=== PATIENT | male | born 1945 | race Caucasian/White ===

== ENCOUNTER → 2017-10-18 | Outpatient (CLI) | payer MEDICARE, OTHER ==
[~2017-10-18] MED LIST: BYSTOLIC10 MG PO; ELIQUIS PO; FUROSEMIDE40 MG PO; HYDROCHLOROTHIA25 MG PO; IOPAMIDOL 370 MG/ML 200 ML INFUS..BTL INJ ONE; SODIUM CHLORIDE 0.9% 100 ML 100 ML ONE
[2017-10-18 10:46] LABS: BLOOD UREA NITROGEN 6 mg/dL (7-26); BUN/CREATININE RATIO 8 (6-25); CREATININE, SERUM 0.71 mg/dL (0.72-1.25); EST GLOMERULAR FILTRATION RATE > 60 ML/MIN (60-)
--- NOTE | 2017-10-19 08:03 | Diagnostic Imaging Report ---
Exam: CTA lower extremity, with contrast. History: Peripheral vascular disease. Comparison: None available. Technique: Multidetector [address] scanning of the abdomen, pelvis and bilateral lower extremities was performed from the level of the lung bases to the feet after intravenous administration of 100 cc of Isovue-370. Scanning during precontrast, arterial, and venous phases was performed. Coronal and sagittal multiplanar, MIP and 3-D volume-rendering reformations were obtained. DLP: 832.26 mGy-cm Discussion: Abdominal aorta: Mild atherosclerotic calcification and plaque. No stenosis, aneurysm or evidence of dissection. Right hepatic artery originates from the SMA. No significant visceral vessel stenosis. Pelvis vessels: Bilateral common, external and internal iliac arteries are patent with evidence of atherosclerotic calcification and plaque. No stenosis. Right lower extremity: Right common common femoral and profunda are patent. Proximal superficial femoral artery is patent with the middle one third of the superficial femoral artery occluded. There is reconstitution of the SFA above the knee. Length of SFA occlusion estimated at 10 cm or greater. The popliteal artery is patent with atherosclerotic changes. There is a patent trifurcation with occlusion of the proximal anterior tibial artery. Posterior tibial and peroneal artery extend to the foot. Left lower extremity: Right common femoral, profundus femoral, superficial femoral and popliteal arteries are patent. Diffuse atherosclerotic calcification without evidence of focal stenosis. There is a patent trifurcation with the peroneal and posterior tibial arteries extending to the foot. The anterior tibial artery is occluded past its takeoff. Other: The liver, spleen, pancreas, adrenal glands and bilateral kidneys have a normal appearance for arterial phase enhancement. There is no evidence of free fluid or adenopathy. Bladder and pelvic organs appear unremarkable with the exception of enlargement of the prostate and calcification. There are degenerative changes of the spine. IMPRESSION: 1. Long segment occlusion of the middle one third of the right superficial femoral artery. 2. Occlusion of both anterior tibial arteries with posterior tibial and peroneal artery runoff to the feet. 3. Enlarged prostate gland. Signed by: Dr. Naveed Patterson DO on 10/19/2017 8:00 AM
== END ==
LOC: CT 09:57
PROVIDERS: ATTEND Internal Medicine
DX: I70.203 Unspecified atherosclerosis of native arteries of extremities, bilateral legs (principal); I73.9 Peripheral vascular disease, unspecified
CPT/HCPCS: 36415; 75635; 82565; 84520; Q9967

== ENCOUNTER 2018-02-08 11:59 | Observation (INO) | payer MEDICARE, OTHER ==
[~2018-02-08] VITALS: Ht 170.2 cm; Wt 86.2 kg
[~2018-02-08 11:59] MED LIST changes: -IOPAMIDOL 370 MG/ML 200 ML INFUS..BTL INJ ONE; -SODIUM CHLORIDE 0.9% 100 ML 100 ML ONE
--- OUTSIDE RECORDS SUMMARY | 2018-02-08 12:01 | XMS REPORT ---
Author [facility] Address Unknown Phone Unavailable Care Team Providers Care Laboratory Helper Name Role Phone Alanis GENTILE Unavailable Unavailable Payers Payer Name Policy Type Policy Number Effective Date Expiration Date Problems This patient has no known problems. Allergies, Adverse Reactions, Alerts Allergy Name Allergy Type Status Severity Reaction(s) Onset Date Inactive Date Treating Clinician Comments No Known Contrast Allergies DA Active U 2005-10-06 00:00:00 No Known Drug Allergies DA Active U 2005-10-06 00:00:00 No Known Food Allergies DA Active U 2005-10-06 00:00:00 No Known Other Allergies DA Active U 2005-10-06 00:00:00 No Known Drug Intolerances DA Active U 2005-10-05 00:00:00 Medications This patient has no known medications. Results Test Description Test Time Test Comments Text Results Atomic Results Result Comments CTA ABD/PEL/RUN OFF 2017-10-19 07:32:00 [place] [address] Patient Name: MARY MONTIEL MR #: [id number] : 1945 Age/Sex: 72/M Req #: [id number] Adm Physician: Ordered by: CHANCE GENTILE MD Report #: [id number] [facility]: [facility] Room/Bed: Procedure: [id number] CT/CTA ABD/PEL/RUN OFF Exam Date: 10/18/17 Exam Time: 1100 REPORT STATUS: Signed Exam: CTA lower extremity, with contrast. History: Peripheral vascular disease. Comparison: None available. Technique: Multidetector [address] scanning of the abdomen, pelvis and bilateral lower extremities was performed from the level of the lung bases to the feet after intravenous administration of 100 cc of Isovue-370. Scanning during precontrast, arterial, and venous phases was performed. Coronal and sagittal multiplanar, MIP and 3-D volume-rendering reformations were obtained. DLP: 832.26 mGy- cm Discussion: Abdominal aorta: Mild atherosclerotic calcification and plaque. No stenosis, aneurysm or evidence of dissection. Right hepatic artery originates from the SMA. No significant visceral vessel stenosis. Pelvis vessels: Bilateral common, external and internal iliac art eries are patent with evidence of atherosclerotic calcification and plaque. No stenosis. Right lower extremity: Right common common femoral and profunda are patent. Proximal superficial femoral artery is patent with the middle one third of the superficial femoral artery occluded. There is reconstitution of the SFA above the knee. Length of SFA occlusion estimated at 10 cm or greater. The popliteal artery is patent with atherosclerotic changes. There is a patent trifurcation with occlusion of the proximal anterior tibial artery. Posterior tibial and peroneal artery extend to the foot. Left lower extremity: Right common femoral, profundus femoral, superficial femoral and popliteal arteries are patent. Diffuse atherosclerotic calcification without evidence of focal stenosis. There is a patent trifurcation with the peroneal and posterior tibial arteries extending to the foot. The anterior tibial artery is occluded past its takeoff. Other: The liver, spleen, pancreas, adrenal glands and bilateral kidneys have a normal appearance for arterial phase enhancement. There is no evidence of free fluid or adenopathy. Bladder and pelvic organs appear unremarkable with the exception of enlargement of the prostate and calcification. There are degenerative changes of the spine. IMPRESSION: 1. Long segment occlusion of the middle one third of the right superficial femoral artery. 2. Occlusion of both anterior tibial arteries with posterior tibial and peroneal artery runoff to the feet. 3. Enlarged prostate gland. Signed by: Dr. Baldev Patterson DO on 10/19/2017 8:00 AM Dictated By: BALDEV PATTERSON DO 9 Transcribed By: ARTHUR on 10/19/17799 COPY TO: CHANCE GENTILE MD
[2018-02-08] MEDS ORDERED: SODIUM CHLORIDE 0.9% 1000ML 1,000 ML ONE ×2 (12:02→14:14)
[2018-02-08] MEDS ORDERED: ASPIRIN 325 MG TAB ONE (12:02)
[2018-02-08] MEDS ORDERED: LISINOPRIL10 MG PO (12:49)
[2018-02-08] MEDS ORDERED: SUCRALFATE1 GM PO (12:49)
[2018-02-08] MEDS ORDERED: PANTOPRAZOLE SO40 MG PO (12:49)
[2018-02-08] MEDS ORDERED: CILOSTAZOL100 MG PO (12:49)
[2018-02-08] MEDS ORDERED: DOXAZOSIN MESYLA4 MG PO (12:49)
[2018-02-08 12:50] VITALS: BP 166/101
[2018-02-08 13:10] LABS: BASOPHILS % 0.6 % (0.0-1.0); EOSINOPHILS # (AUTO) 0.1 (0.0-0.4); EOSINOPHILS % 1.5 % (0.0-6.0); HEMATOCRIT 34.9 % (38.2-49.6); HEMOGLOBIN 12.2 g/dL (14.0-18.0); LYMPHOCYTES # (AUTO) 1.1 (1.0-3.2); LYMPHOCYTES % 20.4 % (18.0-39.1); MEAN CORPUSCULAR VOLUME 102.9 fL (81-99); MONOCYTES # (AUTO) 0.7 (0.2-0.8); NEUTROPHILS # (AUTO) 3.5 (2.1-6.9); NEUTROPHILS % 64.1 % (38.7-80.0); PLATELET COUNT 221 x10e3/uL (140-360); RED BLOOD COUNT 3.39 x10e6/uL (4.3-5.7); RED CELL DISTRIBUTION WIDTH 14.2 % (11.7-14.4)
[2018-02-08] MEDS ORDERED: MIDAZOLAM HCL 2 MG/2 ML VIAL ONE (13:18)
[2018-02-08] MEDS ORDERED: LIDOCAINE HCL 2% LOCAL 20 ML VIAL ONE (13:19)
[2018-02-08] MEDS ORDERED: IOPAMIDOL 370 MG/ML 200 ML INFUS..BTL INJ ONE (13:19)
[2018-02-08] MEDS ORDERED: HEPARIN SOD/SOD CHLORIDE 2,000 ML ONE (13:19)
[2018-02-08] MEDS ORDERED: FENTANYL CITRATE/PF 100MCG/2 ML INJ ONE (13:20)
[2018-02-08 13:24] LABS: INR 1.06; PROTHROMBIN TIME 14.8 seconds (11.9-14.5)
[2018-02-08 13:38] LABS: ALANINE AMINOTRANSFERASE 7 IU/L (0-55); ALBUMIN 3.8 g/dL (3.5-5.0); ALBUMIN/GLOBULIN RATIO 1.3 (0.8-2.0); ALKALINE PHOSPHATASE 56 IU/L (40-150); ANION GAP 14.5 mmol/L (8-16); BLOOD UREA NITROGEN 7 mg/dL (7-26); BUN/CREATININE RATIO 10 (6-25); CALCIUM 8.6 mg/dL (8.4-10.2); CARBON DIOXIDE 24 mmol/L (22-29); CHLORIDE 95 mmol/L (98-107); CHOL/HDL RATIO 3.7 (3.9-4.7); CHOLESTEROL 188 MD/DL (0-199); CREATININE, SERUM 0.71 mg/dL (0.72-1.25); EST GLOMERULAR FILTRATION RATE > 60 ML/MIN (60-); GLUCOSE 101 mg/dL (74-118); HDL CHOLESTEROL 51 MG/DL (40-60); LDL CHOLESTEROL 124 MG/DL (60-130); POTASSIUM 3.5 mmol/L (3.5-5.1); SODIUM 130 mmol/L (136-145); TRIGLYCERIDES 64 MG/DL (0-149)
[2018-02-08] MEDS ORDERED: NITROGLYCERIN/D5W 200 MCG/ML 250 ML ONE (14:14)
[2018-02-08] MEDS ORDERED: HEPARIN SOD (PORCINE) 1000 UNIT/ML 30ML ONE (14:14)
[2018-02-08] MEDS ORDERED: VERAPAMIL HCL 2.5 MG/ML 2 ML VIAL ONE (14:14)
[2018-02-08] MEDS ORDERED: IOPAMIDOL 300MG/ML 100 ML INFUS..BTL IV ONE (15:13)
[2018-02-08] MEDS ORDERED: CLOPIDOGREL BISULFATE 75 MG TAB ONE ×2 (16:22)
[2018-02-08 18:09] VITALS: BP 166/101
[2018-02-08 20:00] VITALS: BP 162/86
[2018-02-09] MEDS ORDERED: CLOPIDOGREL BISULFATE 75 MG TAB PO SCH (09:00)
[2018-02-09] MEDS ORDERED: NEBIVOLOL 10 MG TAB PO SCH (09:00)
[2018-02-09] MEDS ORDERED: LISINOPRIL 10 MG TAB PO SCH (09:00)
[2018-02-09] MEDS ORDERED: ASPIRIN 81 MG CHEW TAB PO SCH (09:00)
[2018-02-09] MEDS ORDERED: CILOSTAZOL 100 MG TAB PO SCH (09:00)
[2018-02-09] MEDS ORDERED: HYDROCHLOROTHIAZIDE 25 MG TAB PO SCH (09:00)
[2018-02-09] MEDS ORDERED: FUROSEMIDE 40 MG TAB PO SCH (09:00)
--- NOTE | 2018-02-09 15:16 | Operative Report ---
DATE OF PROCEDURE: PROCEDURE: Peripheral angiography and intervention. PROCEDURE INDICATIONS: Intermittent claudication, life-limiting affecting daily routine with abnormal Doppler ultrasound suggesting SFA chronic occlusion and multilevel disease. PROCEDURES PERFORMED 1. Abdominal aortogram. 2. Selective lower extremity angiography, bilateral. 3. Right superficial femoral artery drug-eluting balloon angioplasty using a 6 x 150 Lutonix drug-eluting balloon. 4. Right percutaneous coronary intervention atherectomy at 60,000 rpm. 5. Right percutaneous transluminal angioplasty. 6. Left common femoral artery 6-Prydeinig Angio-Seal closure. 7. Third-order catheter placement, left common femoral artery to right common femoral artery for selective lower extremity angiography. 8. Additional third-order catheter placement to left common femoral artery to right popliteal artery for selective angiography of below the knee vessels. 9. Additional third-order catheter placement in the left femoral artery to right posterior tibial artery used to better visualize the retrograde filling of the dorsalis pedis and anterior tibial artery for outflow assessment. ESTIMATED BLOOD LOSS: Less than 15 mL. PROCEDURE COMPLICATIONS: None. PROCEDURE SUMMARY: After consent was obtained, the patient was prepped and draped in a sterile fashion. The left femoral site was locally infiltrated with 2% lidocaine. With the micropuncture kit, a short 6-Prydeinig sheath was placed. An Omniflush catheter was positioned in the abdominal aorta for video subtraction angiography of the abdominal aorta visualizing the renal arteries and looking for irregularities across the descending abdominal aorta and [place] vessels. Overall, there is a 30% stenosis and moderate calcification throughout the vessels bilaterally. Attention then directed to the right lower extremity vessels, which were evaluated with selective angiography with a sheath positioned to the right common femoral artery confirming a prior occlusion of the right SFA in the midsegment. Heavy calcification was noted. The bilateral common femoral arteries had less than 30% stenosis. The bilateral profundus area had 70% stenosis. The right SFA had a 100% chronic total occlusion, and a portion of the SFA has positive 50, mid 60, and distal 60% tandem lesions. Right popliteal artery has less than 30% stenosis. The left popliteal artery had a focal area of distal 70% stenosis. Both anterior tibial arteries are occluded 100% throughout. The right peroneal artery has a 60% and then 70% mid-stenosis. The left posterior tibial artery has 90% distal stenosis. The right CP trunk has less than 30% stenosis. The left peroneal artery has a 90% stenosis. The left posterior tibial artery has 90% stenosis in tandem with another area of 90% stenosis. Again, the left posterior tibial is 100% stenosed. Post intervention, which was performed as will be described below, the right SFA had a residual less than 10% stenosis. No flow-limiting dissections (an area of non-flow limiting dissection was noted post intervention). PARI-III flow and no perforations. The right posterior tibial artery had at the end of the procedure less than 10% residual stenosis, re-establishing linear flow down to the foot with less than 10% stenosis, PARI-III flow, no perforations, and no flow-limiting dissections. INTERVENTION: The right SFA was crossed with Advantage wire J-tipped along with an 0.35 microcatheter. Distal crossing was confirmed with the catheter in intraluminal position with additional angiography. Viper Wire was positioned at the dorsalis pedis artery, and CSI atherectomy of the right posterior tibial artery was then performed following by FUR FINISHER with a 2.5 x 220 ultra balloon for over 2 minutes. Additional FUR FINISHER of distal segment right posterior tibial was later performed, 2.5 x 100 and then a 2.5 x 40 balloon for areas of residual stenosis, and then flow-limiting dissection that was treated appropriately with this balloon with no evidence of flow-limiting dissection at the end of the procedure, and re-establishment of flow and PARI-III flow throughout the right posterior tibial artery. The right SFA was addressed with pre-dilatation using a 5 x 150 ultra balloon to 12 atmospheres for 2 minutes followed by Lutonix 6 x 150 drug-eluting balloon to the right SFA. Final angiography revealed excellent results as described above. At the conclusion, right SFA CTR revascularization using drug-eluting balloon and right posterior tibial artery CSI atherectomy and FUR FINISHER with excellent final angiographic results. Of note, the anterior tibial has a long segment of chronic occlusion in the right, and distal the right dorsalis pedis artery fills well from patent right plantar arch. There is limited segment of distal anterior tibial patency, which is suboptimal for pedal revascularization of this vessel. RECOMMENDATIONS: Aspirin and Plavix. Bedrest and IV fluids. Consider staged intervention through the left lower extremity at a later date. Job#: [id number] RI
== END 2018-02-08 22:25 | disposition home or self-care (01) ==
LOC: CATH LAB 11:59 → CATH LAB V 16:54 → IMCU 17:50
PROVIDERS: ADMIT Internal Medicine Cardiovascular Disease; ATTEND Internal Medicine Cardiovascular Disease
DX: I70.211 Atherosclerosis of native arteries of extremities with intermittent claudication, right leg (principal); I10 Essential (primary) hypertension; E78.5 Hyperlipidemia, unspecified; E66.01 Morbid (severe) obesity due to excess calories; I48.0 Paroxysmal atrial fibrillation; R60.0 Localized edema; Z82.49 Family history of ischemic heart disease and other diseases of the circulatory system
CPT/HCPCS: 36415; 37224; 37229; 75625; 75716; 80053; 80061; 84443; 85025; 85610; 93005; C1724; C1725 ×4; C1769 ×2; C1887; C2623; G0378; J1644; J2001; J2250; J7030; Q9967 ×2; 36247; 37186

== ENCOUNTER → 2018-06-13 | Outpatient (CLI) | payer MEDICARE, OTHER ==
[~2018-06-13] MED LIST changes: +CILOSTAZOL100 MG PO; +DOXAZOSIN MESYLA4 MG PO; +LISINOPRIL10 MG PO; +PANTOPRAZOLE SO40 MG PO; +SUCRALFATE1 GM PO
--- NOTE | 2018-06-13 16:31 | Diagnostic Imaging Report ---
Frontal and lateral views of the chest. HISTORY: Simple chronic bronchitis COMPARISON: None available. DISCUSSION: Lungs: Increased peribronchial interstitial markings. No evidence of a consolidative pneumonia or pulmonary alveolar edema. Pleura: No pleural effusion or pneumothorax. Heart and mediastinum: The cardiomediastinal silhouette appears unremarkable. Atherosclerotic vascular calcifications at the aortic arch. Bones and soft tissues: Appear unremarkable. IMPRESSION: 1. Findings compatible with a nonspecific bronchitis. 2. No consolidative pneumonia. Signed by: Dr. Alexis Moore D.O., M.M.M. on 06/13/2018 4:28 PM
== END ==
LOC: RAD 15:52
PROVIDERS: ATTEND Internal Medicine
DX: J41.0 Simple chronic bronchitis (principal)
CPT/HCPCS: 71046

== ENCOUNTER 2018-07-10 15:03 | Emergency (ER) | payer OTHER ==
[~2018-07-10] VITALS: Ht 170.2 cm; Wt 86.2 kg
--- NOTE | 2018-07-10 16:44 | Diagnostic Imaging Report ---
History:Left hand numbness Comparison studies: None Technique: Axial images were obtained from the skull base to the vertex. Coronal and sagittal images reconstructed from the axial data. Dose modulation, iterative reconstruction, and/or weight based adjustment of the mA/kV was utilized to reduce the radiation dose to as low as reasonably achievable. Intravenous contrast: None Findings: Scalp/skull: No abnormalities. Extra-axial spaces: No masses. No fluid collections. Brain sulci: Mildly prominent. Ventricles: Mild compensatory dilatation. No hydrocephalus. Parenchyma: Subtle hypodensities in the supratentorial white matter are small vessel ischemic changes. No masses, hemorrhage, acute or chronic cortical vascular insults. Sellar/suprasellar region: No abnormalities. Craniocervical junction: Patent foramen magnum. No Chiari one malformation. Incidental findings: Atherosclerotic calcifications in the carotid siphons and vertebral arteries. Scattered dermal calcifications at the vertex. Impression: No acute intracranial abnormalities. Chronic findings: 1. Mild generalized volume loss. 2. Mild supratentorial white matter small vessel ischemic changes. Signed by: Dr. Stuart Kaur M.D. on 07/10/2018 4:41 PM
== END 2018-07-10 17:45 | disposition home or self-care (01) ==
LOC: ER 15:03
DX: G56.32 Lesion of radial nerve, left upper limb (principal); I11.0 Hypertensive heart disease with heart failure; I50.9 Heart failure, unspecified; E11.9 Type 2 diabetes mellitus without complications; I48.91 Unspecified atrial fibrillation; E78.5 Hyperlipidemia, unspecified; N40.0 Benign prostatic hyperplasia without lower urinary tract symptoms; F17.200 Nicotine dependence, unspecified, uncomplicated; Z79.01 Long term (current) use of anticoagulants
CPT/HCPCS: 70450; 99283

== ENCOUNTER 2018-08-12 16:39 | Emergency (ER) | payer OTHER ==
[~2018-08-12] VITALS: Ht 170.2 cm; Wt 86.2 kg
== END 2018-08-12 17:20 | disposition home or self-care (01) ==
LOC: ER 16:39
DX: H92.02 Otalgia, left ear (principal); X58.XXXA Exposure to other specified factors, initial encounter; Y92.008 Other place in unspecified non-institutional (private) residence as the place of occurrence of the external cause; I10 Essential (primary) hypertension; E11.9 Type 2 diabetes mellitus without complications; I50.9 Heart failure, unspecified; I48.91 Unspecified atrial fibrillation; Z86.73 Personal history of transient ischemic attack (TIA), and cerebral infarction without residual deficits
CPT/HCPCS: 99282

== ENCOUNTER 2018-08-13 13:00 | Outpatient (RCR) | payer MEDICARE, OTHER | END 2018-08-24 | LOC: OT 13:00 | PROVIDERS: ATTEND Psychiatry & Neurology Clinical Neurophysiology | DX: G56.32 Lesion of radial nerve, left upper limb (principal) ==

== ENCOUNTER 2021-05-17 09:20 | Outpatient (RCR) | payer MEDICARE, OTHER | END 2021-05-24 | LOC: WCC 09:20 | PROVIDERS: ATTEND Internal Medicine Infectious Disease | DX: I87.332 Chronic venous hypertension (idiopathic) with ulcer and inflammation of left lower extremity (principal); L97.821 Non-pressure chronic ulcer of other part of left lower leg limited to breakdown of skin; I73.89 Other specified peripheral vascular diseases; I87.2 Venous insufficiency (chronic) (peripheral); R60.0 Localized edema; G62.9 Polyneuropathy, unspecified; I11.0 Hypertensive heart disease with heart failure; G90.09 Other idiopathic peripheral autonomic neuropathy; I48.20 Chronic atrial fibrillation, unspecified; I50.9 Heart failure, unspecified; J40 Bronchitis, not specified as acute or chronic; I63.9 Cerebral infarction, unspecified; K75.81 Nonalcoholic steatohepatitis (NASH); G47.33 Obstructive sleep apnea (adult) (pediatric); E29.1 Testicular hypofunction; K21.9 Gastro-esophageal reflux disease without esophagitis; E53.8 Deficiency of other specified B group vitamins; E55.9 Vitamin D deficiency, unspecified; F32.9 Major depressive disorder, single episode, unspecified; F41.9 Anxiety disorder, unspecified; G47.00 Insomnia, unspecified; M19.90 Unspecified osteoarthritis, unspecified site; N40.0 Benign prostatic hyperplasia without lower urinary tract symptoms; Z72.0 Tobacco use ==

== ENCOUNTER 2021-06-02 11:12 | Emergency (ER) | payer MEDICARE, OTHER ==
[~2021-06-02] VITALS: Ht 170.2 cm; Wt 86.2 kg
== END 2021-06-02 11:54 | disposition home or self-care (01) ==
LOC: ER 11:32
DX: R14.0 Abdominal distension (gaseous) (principal); I10 Essential (primary) hypertension; E11.9 Type 2 diabetes mellitus without complications; I50.9 Heart failure, unspecified; E78.5 Hyperlipidemia, unspecified; I48.91 Unspecified atrial fibrillation; Z86.73 Personal history of transient ischemic attack (TIA), and cerebral infarction without residual deficits
CPT/HCPCS: 99282

== ENCOUNTER 2021-08-25 11:29 | Outpatient (RCR) | payer MEDICARE ==
[2021-08-25] MEDS ORDERED: MINERAL OIL/PETROLAT/GLYCERI 6OZ BTL ONE (13:26)
== END 2021-09-23 ==
LOC: WCC 11:29
PROVIDERS: ATTEND Internal Medicine Infectious Disease
DX: I87.332 Chronic venous hypertension (idiopathic) with ulcer and inflammation of left lower extremity (principal); L97.821 Non-pressure chronic ulcer of other part of left lower leg limited to breakdown of skin; L97.811 Non-pressure chronic ulcer of other part of right lower leg limited to breakdown of skin; I87.331 Chronic venous hypertension (idiopathic) with ulcer and inflammation of right lower extremity; I87.2 Venous insufficiency (chronic) (peripheral); R60.0 Localized edema; E29.1 Testicular hypofunction; E53.8 Deficiency of other specified B group vitamins; E55.9 Vitamin D deficiency, unspecified; F32.9 Major depressive disorder, single episode, unspecified; F41.9 Anxiety disorder, unspecified; G47.00 Insomnia, unspecified; G47.33 Obstructive sleep apnea (adult) (pediatric); G62.9 Polyneuropathy, unspecified; G90.09 Other idiopathic peripheral autonomic neuropathy; I11.0 Hypertensive heart disease with heart failure; I48.20 Chronic atrial fibrillation, unspecified; I50.9 Heart failure, unspecified; I63.9 Cerebral infarction, unspecified; I73.89 Other specified peripheral vascular diseases; J40 Bronchitis, not specified as acute or chronic; K21.9 Gastro-esophageal reflux disease without esophagitis; K75.81 Nonalcoholic steatohepatitis (NASH); M19.90 Unspecified osteoarthritis, unspecified site; N40.0 Benign prostatic hyperplasia without lower urinary tract symptoms; Z72.0 Tobacco use

== ENCOUNTER 2021-10-04 14:59 | Observation (INO) | payer MEDICARE ==
[~2021-10-04] VITALS: Ht 167.6 cm; Wt 90.7 kg
[2021-10-04 16:34] LABS: BASOPHILS # (AUTO) 0.1 (0.0-0.1); BASOPHILS % 2.5 % (0.0-1.0); EOSINOPHILS # (AUTO) 0.1 (0.0-0.4); EOSINOPHILS % 2.5 % (0.0-6.0); HEMATOCRIT 27.8 % (38.2-49.6); HEMOGLOBIN 9.5 g/dL (14.0-18.0); LYMPHOCYTES # (AUTO) 0.8 (1.0-3.2); LYMPHOCYTES % 19.7 % (18.0-39.1); MEAN CORPUSCULAR HEMOGLOBIN 33.3 pg (28-32); MEAN CORPUSCULAR HGB CONC 34.2 g/dL (31-35); MEAN CORPUSCULAR VOLUME 97.5 fL (81-99); MONOCYTES # (AUTO) 0.6 (0.2-0.8); MONOCYTES % 15.8 % (4.4-11.3); NEUTROPHILS # (AUTO) 2.4 (2.1-6.9); NEUTROPHILS % 59.3 % (38.7-80.0); PLATELET COUNT 230 x10e3/uL (140-360); RED BLOOD COUNT 2.85 x10e6/uL (4.3-5.7); RED CELL DISTRIBUTION WIDTH 16.5 % (11.7-14.4)
[2021-10-04 16:45] LABS: INR 1.71; PROTHROMBIN TIME 21.4 seconds (11.9-14.5)
[2021-10-04 16:46] LABS: PARTIAL THROMBOPLASTIN TIME 45.8 seconds (23.8-35.5)
[2021-10-04 16:50] LABS: ALBUMIN 2.3 g/dL (3.5-5.0); ALBUMIN/GLOBULIN RATIO 0.5 (0.8-2.0); ALKALINE PHOSPHATASE 71 IU/L (40-150); ANION GAP 12.2 mmol/L (8-16); BLOOD UREA NITROGEN 8 mg/dL (7-26); BUN/CREATININE RATIO 13 (6-25); CALCIUM 7.5 mg/dL (8.4-10.2); CARBON DIOXIDE 27 mmol/L (22-29); CHLORIDE 94 mmol/L (98-107); CREATINE KINASE 24 IU/L (30-200); CREATININE, SERUM 0.62 mg/dL (0.72-1.25); GLUCOSE 91 mg/dL (74-118); POTASSIUM 4.2 mmol/L (3.5-5.1); SODIUM 129 mmol/L (136-145)
[2021-10-04 16:58] LABS: ALANINE AMINOTRANSFERASE < 6 IU/L (0-55)
[2021-10-04] MEDS ORDERED: IOPAMIDOL 370 MG/ML 100 ML INFUS..BTL INJ ONE (19:45)
[2021-10-04] MEDS ORDERED: ONDANSETRON HCL INJ 2MG/ML 2ML 2 MG/ML VIAL IV PRN (20:00)
[2021-10-04] MEDS ORDERED: SODIUM CHLORIDE FLUSH 10 ML SYR INJ PRN (20:00)
[2021-10-04 21:00] VITALS: BP 114/49
[2021-10-05] VITALS (7 sets, daily range): BP systolic 95–141; BP diastolic 50–81
[2021-10-05 03:25] LABS: CREATINE KINASE 22 IU/L (30-200)
[2021-10-05 05:49] LABS: BASOPHILS # (AUTO) 0.1 (0.0-0.1); BASOPHILS % 1.6 % (0.0-1.0); EOSINOPHILS # (AUTO) 0.1 (0.0-0.4); EOSINOPHILS % 2.8 % (0.0-6.0); HEMATOCRIT 27.9 % (38.2-49.6); HEMOGLOBIN 9.6 g/dL (14.0-18.0); LYMPHOCYTES # (AUTO) 0.8 (1.0-3.2); LYMPHOCYTES % 18.1 % (18.0-39.1); MEAN CORPUSCULAR HEMOGLOBIN 33.6 pg (28-32); MEAN CORPUSCULAR HGB CONC 34.4 g/dL (31-35); MEAN CORPUSCULAR VOLUME 97.6 fL (81-99); MONOCYTES # (AUTO) 0.8 (0.2-0.8); NEUTROPHILS # (AUTO) 2.5 (2.1-6.9); NEUTROPHILS % 58.3 % (38.7-80.0); PLATELET COUNT 243 x10e3/uL (140-360); RED BLOOD COUNT 2.86 x10e6/uL (4.3-5.7); RED CELL DISTRIBUTION WIDTH 16.7 % (11.7-14.4)
[2021-10-05 12:52] LABS: CREATINE KINASE 29 IU/L (30-200)
[2021-10-05] MEDS: ACETAMINOPHEN 325 MG TAB PO PRN (20:29)
[2021-10-05] MEDS ORDERED: ACETAMINOPHEN 325 MG TAB ONE (20:38)
[2021-10-05] MEDS ORDERED: SPIRONOLACTONE 25 MG TAB PO ONE (23:45)
[2021-10-05] MEDS ORDERED: FUROSEMIDE INJ 10 MG/ML 4 ML VIAL IV ONE (23:45)
[2021-10-06] VITALS: BP 117/69
[2021-10-06 04:00] VITALS: BP 136/69
[2021-10-06 06:27] LABS: BASOPHILS # (AUTO) 0.1 (0.0-0.1); BASOPHILS % 1.3 % (0.0-1.0); EOSINOPHILS # (AUTO) 0.1 (0.0-0.4); EOSINOPHILS % 1.9 % (0.0-6.0); HEMATOCRIT 26.8 % (38.2-49.6); HEMOGLOBIN 9.1 g/dL (14.0-18.0); LYMPHOCYTES # (AUTO) 0.7 (1.0-3.2); LYMPHOCYTES % 18.7 % (18.0-39.1); MEAN CORPUSCULAR HEMOGLOBIN 32.9 pg (28-32); MEAN CORPUSCULAR VOLUME 96.8 fL (81-99); MONOCYTES # (AUTO) 0.6 (0.2-0.8); MONOCYTES % 16.8 % (4.4-11.3); NEUTROPHILS # (AUTO) 2.3 (2.1-6.9); NEUTROPHILS % 60.8 % (38.7-80.0); PLATELET COUNT 224 x10e3/uL (140-360); RED BLOOD COUNT 2.77 x10e6/uL (4.3-5.7); RED CELL DISTRIBUTION WIDTH 16.9 % (11.7-14.4)
[2021-10-06] MEDS: ACETAMINOPHEN 325 MG TAB PO PRN ×3 (06:48→12:21)
[2021-10-06 06:59] LABS: ALBUMIN 2.1 g/dL (3.5-5.0); ALBUMIN/GLOBULIN RATIO 0.5 (0.8-2.0); ALKALINE PHOSPHATASE 73 IU/L (40-150); BLOOD UREA NITROGEN 9 mg/dL (7-26); BUN/CREATININE RATIO 13 (6-25); CALCIUM 7.4 mg/dL (8.4-10.2); CARBON DIOXIDE 29 mmol/L (22-29); CHLORIDE 93 mmol/L (98-107); CREATININE, SERUM 0.69 mg/dL (0.72-1.25); GLUCOSE 109 mg/dL (74-118); SODIUM 130 mmol/L (136-145)
[2021-10-06 07:01] LABS: ALANINE AMINOTRANSFERASE < 6 IU/L (0-55)
[2021-10-06 08:11] VITALS: BP 136/69
[2021-10-06 08:37] VITALS: BP 125/60
[2021-10-06] MEDS ORDERED: FUROSEMIDE INJ 10 MG/ML 4 ML VIAL IV SCH (09:00)
[2021-10-06] MEDS ORDERED: FUROSEMIDE 40 MG TAB PO SCH (09:00)
[2021-10-06] MEDS ORDERED: SPIRONOLACTONE 25 MG TAB PO SCH (09:00)
[2021-10-06] MEDS ORDERED: PANTOPRAZOLE SOD 40 MG TABEC PO SCH (09:00)
[2021-10-06] MEDS ORDERED: ALBUMIN 25% 12.5GM 50ML 150 ML IV ONE (09:26)
[2021-10-06] MEDS ORDERED: ALBUMIN 25% 12.5GM 50ML 50 ML IV ONE (10:03)
[2021-10-06 11:45] VITALS: BP 137/63
[2021-10-06 13:06] LABS: BODY FLUID COLOR STRAW; BODY FLUID TYPE PERITONEAL
[2021-10-06 13:07] LABS: BODY FLUID APPEARANCE SL.CLOUDY; RBC,BODY FLUID 0 cells/uL; WBC,BODY FLUID 87 cells/uL
[2021-10-06 13:14] LABS: LYMPHOCYTES,BODY FLUID 34 %; MONO/MACROPHG,BODY FLUID 22 %; NEUTROPHILS,BODY FLUID 9 %; OTHER CELLS,BODY FLUID 35 %
== END 2021-10-06 17:06 | disposition home or self-care (01) ==
LOC: ER 16:12 → INTOOBSV 20:01 → ERHOLD 20:01 → MED/SURG3 10-05 11:41
PROVIDERS: ADMIT Internal Medicine; ATTEND Internal Medicine
DX: R18.8 Other ascites (principal); I11.0 Hypertensive heart disease with heart failure; I50.9 Heart failure, unspecified; E11.9 Type 2 diabetes mellitus without complications; Z86.73 Personal history of transient ischemic attack (TIA), and cerebral infarction without residual deficits; I48.0 Paroxysmal atrial fibrillation; Z79.01 Long term (current) use of anticoagulants; F17.200 Nicotine dependence, unspecified, uncomplicated
CPT/HCPCS: 0223U; 36415 ×3; 49083; 71045 ×2; 74177; 80053 ×2; 82040; 82105; 82550 ×2; 82553 ×2; 82948; 83880; 84157; 84484 ×2; 85025 ×3; 85610; 85730; 87070; 87205; 88112; 88305; 88342; 89051; 93005 ×2; 94799 ×2; 99251; 99284; C1729; G0378 ×3; J1940; Q9967; S0164; 88300

== ENCOUNTER 2021-10-11 12:48 | Outpatient (RCR) | payer MEDICARE ==
[~2021-10-11 12:48] MED LIST changes: +LIDOCAINE VISC 2% SOLN 15 ML UDC ONE; +MINERAL OIL/PETROLAT/GLYCERI 6OZ BTL ONE
== END 2021-10-24 ==
LOC: WCC 12:48
PROVIDERS: ATTEND Internal Medicine Infectious Disease
DX: I87.331 Chronic venous hypertension (idiopathic) with ulcer and inflammation of right lower extremity (principal); I87.332 Chronic venous hypertension (idiopathic) with ulcer and inflammation of left lower extremity; L97.811 Non-pressure chronic ulcer of other part of right lower leg limited to breakdown of skin; L97.821 Non-pressure chronic ulcer of other part of left lower leg limited to breakdown of skin; I87.2 Venous insufficiency (chronic) (peripheral); R60.0 Localized edema; I73.89 Other specified peripheral vascular diseases; I11.0 Hypertensive heart disease with heart failure; K75.81 Nonalcoholic steatohepatitis (NASH); G47.33 Obstructive sleep apnea (adult) (pediatric); E29.1 Testicular hypofunction; G62.9 Polyneuropathy, unspecified; G90.09 Other idiopathic peripheral autonomic neuropathy; I48.20 Chronic atrial fibrillation, unspecified; I50.9 Heart failure, unspecified; I63.9 Cerebral infarction, unspecified; J40 Bronchitis, not specified as acute or chronic; E53.8 Deficiency of other specified B group vitamins; E55.9 Vitamin D deficiency, unspecified; F32.9 Major depressive disorder, single episode, unspecified; F41.9 Anxiety disorder, unspecified; G47.00 Insomnia, unspecified; K21.9 Gastro-esophageal reflux disease without esophagitis; M19.90 Unspecified osteoarthritis, unspecified site; N40.0 Benign prostatic hyperplasia without lower urinary tract symptoms; Z72.0 Tobacco use

== ENCOUNTER 2021-10-29 11:19 | Outpatient (RCR) | payer MEDICARE ==
[~2021-10-29 11:19] MED LIST changes: -LIDOCAINE VISC 2% SOLN 15 ML UDC ONE; -MINERAL OIL/PETROLAT/GLYCERI 6OZ BTL ONE
== END 2021-11-24 ==
LOC: WCC 11:19
PROVIDERS: ATTEND Internal Medicine Infectious Disease
DX: I87.331 Chronic venous hypertension (idiopathic) with ulcer and inflammation of right lower extremity (principal); I87.332 Chronic venous hypertension (idiopathic) with ulcer and inflammation of left lower extremity; L97.811 Non-pressure chronic ulcer of other part of right lower leg limited to breakdown of skin; L97.821 Non-pressure chronic ulcer of other part of left lower leg limited to breakdown of skin; R60.0 Localized edema; I87.2 Venous insufficiency (chronic) (peripheral); I73.89 Other specified peripheral vascular diseases; G90.09 Other idiopathic peripheral autonomic neuropathy; I63.9 Cerebral infarction, unspecified; I48.20 Chronic atrial fibrillation, unspecified; I11.0 Hypertensive heart disease with heart failure; I50.9 Heart failure, unspecified; G47.33 Obstructive sleep apnea (adult) (pediatric); N40.0 Benign prostatic hyperplasia without lower urinary tract symptoms; J40 Bronchitis, not specified as acute or chronic; G62.9 Polyneuropathy, unspecified; K75.81 Nonalcoholic steatohepatitis (NASH); G47.00 Insomnia, unspecified; E53.8 Deficiency of other specified B group vitamins; E55.9 Vitamin D deficiency, unspecified; E29.1 Testicular hypofunction; F32.9 Major depressive disorder, single episode, unspecified; F41.9 Anxiety disorder, unspecified; K21.9 Gastro-esophageal reflux disease without esophagitis; M19.90 Unspecified osteoarthritis, unspecified site; Z72.0 Tobacco use

== ENCOUNTER 2021-12-17 14:34 | Outpatient (RCR) | payer MEDICARE ==
[~2021-12-17 14:34] MED LIST changes: +LIDOCAINE VISC 2% SOLN 15 ML UDC ONE
== END 2021-12-24 ==
LOC: WCC 14:34
PROVIDERS: ATTEND Internal Medicine Infectious Disease
DX: I87.331 Chronic venous hypertension (idiopathic) with ulcer and inflammation of right lower extremity (principal); I97.821 Postprocedural cerebrovascular infarction following other surgery; S91.309A Unspecified open wound, unspecified foot, initial encounter; L97.811 Non-pressure chronic ulcer of other part of right lower leg limited to breakdown of skin; I87.312 Chronic venous hypertension (idiopathic) with ulcer of left lower extremity; I87.332 Chronic venous hypertension (idiopathic) with ulcer and inflammation of left lower extremity; L97.821 Non-pressure chronic ulcer of other part of left lower leg limited to breakdown of skin; R60.0 Localized edema; I11.0 Hypertensive heart disease with heart failure; K75.81 Nonalcoholic steatohepatitis (NASH); I73.89 Other specified peripheral vascular diseases; G90.09 Other idiopathic peripheral autonomic neuropathy; I87.2 Venous insufficiency (chronic) (peripheral); I63.9 Cerebral infarction, unspecified; I48.20 Chronic atrial fibrillation, unspecified; I50.9 Heart failure, unspecified; J40 Bronchitis, not specified as acute or chronic; G47.00 Insomnia, unspecified; G47.33 Obstructive sleep apnea (adult) (pediatric); G62.9 Polyneuropathy, unspecified; E29.1 Testicular hypofunction; E53.8 Deficiency of other specified B group vitamins; E55.9 Vitamin D deficiency, unspecified; F32.9 Major depressive disorder, single episode, unspecified; F41.9 Anxiety disorder, unspecified; K21.9 Gastro-esophageal reflux disease without esophagitis; M19.90 Unspecified osteoarthritis, unspecified site; N40.0 Benign prostatic hyperplasia without lower urinary tract symptoms; Z72.0 Tobacco use

== ENCOUNTER 2022-01-21 14:34 | Outpatient (RCR) | payer MEDICARE | END 2022-01-24 | LOC: WCC 14:34 | PROVIDERS: ATTEND Internal Medicine Infectious Disease | DX: L89.213 Pressure ulcer of right hip, stage 3 (principal); L03.119 Cellulitis of unspecified part of limb; L97.811 Non-pressure chronic ulcer of other part of right lower leg limited to breakdown of skin; I87.331 Chronic venous hypertension (idiopathic) with ulcer and inflammation of right lower extremity; R60.0 Localized edema; I87.2 Venous insufficiency (chronic) (peripheral); I63.9 Cerebral infarction, unspecified; I11.0 Hypertensive heart disease with heart failure; I50.9 Heart failure, unspecified; K75.81 Nonalcoholic steatohepatitis (NASH); J40 Bronchitis, not specified as acute or chronic; I48.20 Chronic atrial fibrillation, unspecified; B96.5 Pseudomonas (aeruginosa) (mallei) (pseudomallei) as the cause of diseases classified elsewhere; E55.9 Vitamin D deficiency, unspecified; N40.0 Benign prostatic hyperplasia without lower urinary tract symptoms; G62.9 Polyneuropathy, unspecified; K21.9 Gastro-esophageal reflux disease without esophagitis; G90.09 Other idiopathic peripheral autonomic neuropathy; E29.1 Testicular hypofunction; F41.9 Anxiety disorder, unspecified; F32.9 Major depressive disorder, single episode, unspecified; E53.8 Deficiency of other specified B group vitamins; M19.90 Unspecified osteoarthritis, unspecified site; G47.00 Insomnia, unspecified; G47.33 Obstructive sleep apnea (adult) (pediatric); I73.89 Other specified peripheral vascular diseases; Z72.0 Tobacco use; Z74.01 Bed confinement status ==

== ENCOUNTER → 2022-01-21 | Outpatient (CLI) | payer MEDICARE ==
[~2022-01-21] MED LIST changes: -LIDOCAINE VISC 2% SOLN 15 ML UDC ONE
[2022-01-21 13:53] LABS: BASOPHILS # (AUTO) 0.1 (0.0-0.1); BASOPHILS % 1.3 % (0.0-1.0); EOSINOPHILS # (AUTO) 0.2 (0.0-0.4); HEMATOCRIT 26.5 % (38.2-49.6); HEMOGLOBIN 8.9 g/dL (14.0-18.0); LYMPHOCYTES # (AUTO) 1.1 (1.0-3.2); LYMPHOCYTES % 23.6 % (18.0-39.1); MEAN CORPUSCULAR HEMOGLOBIN 33.2 pg (28-32); MEAN CORPUSCULAR HGB CONC 33.6 g/dL (31-35); MEAN CORPUSCULAR VOLUME 98.9 fL (81-99); MONOCYTES # (AUTO) 0.7 (0.2-0.8); MONOCYTES % 13.8 % (4.4-11.3); NEUTROPHILS # (AUTO) 2.7 (2.1-6.9); NEUTROPHILS % 55.9 % (38.7-80.0); PLATELET COUNT 257 x10e3/uL (140-360); RED BLOOD COUNT 2.68 x10e6/uL (4.3-5.7); RED CELL DISTRIBUTION WIDTH 15.9 % (11.7-14.4)
[2022-01-21 14:13] LABS: INR 1.61; PROTHROMBIN TIME 20.5 seconds (11.9-14.5)
[2022-01-21 14:17] LABS: CREATININE, SERUM 0.69 mg/dL (0.72-1.25)
== END ==
LOC: DX 13:09
PROVIDERS: ATTEND Internal Medicine
DX: Z45.2 Encounter for adjustment and management of vascular access device (principal)
CPT/HCPCS: 36415; 36569; 71045; 82565; 84520; 85025; 85610; 85730